=== PATIENT | female | born 2000 | race African-American/Black ===

== ENCOUNTER 2024-10-12 10:05 | Emergency (ER) | payer BC ==
[~2024-10-12] VITALS: Ht 172.7 cm; Wt 75.0 kg
[2024-10-12 10:07] VITALS: BP 142/82; PULSE 125; RESP 20; TEMP 99.1; O2SAT 98
[2024-10-12] MEDS: ACETAMINOPHEN 325MG TABLET PO ONE (12:13)
[2024-10-12] MEDS ORDERED: ACET-2708 MT (13:47)
== END 2024-10-12 14:01 | disposition home or self-care (01) ==
LOC: ER 10:18
DX: M25.512 Pain in left shoulder (principal); M54.2 Cervicalgia; V49.9XXA Car occupant (driver) (passenger) injured in unspecified traffic accident, initial encounter; Y93.89 Activity, other specified; Y92.89 Other specified places as the place of occurrence of the external cause; Y99.8 Other external cause status
CPT/HCPCS: 73030; 99284